=== PATIENT | male | born 2005 | race Hispanic/Latino ===

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

== ENCOUNTER 2023-04-12 12:37 | Emergency (ER) | payer OTHER ==
[2023-04-12] MEDS ORDERED: levETIRAcetam 500 MG (5 mL) VIAL ONE (13:42)
== END 2023-04-12 14:29 | disposition home or self-care (01) ==
LOC: ERS 12:37
DX: R56.9 Unspecified convulsions (principal); F17.290 Nicotine dependence, other tobacco product, uncomplicated; Z91.148 Patient's other noncompliance with medication regimen for other reason; Z79.899 Other long term (current) drug therapy
CPT/HCPCS: 96374; J1953